=== PATIENT | male | born 1980 | race Two or more races ===

== ENCOUNTER 2017-04-02 17:00 | Emergency (ER) | payer SELFPAY ==
[2017-04-02 17:07] VITALS: BP 129/82
[2017-04-02] MEDS ORDERED: LIDOCAINE 1% INJ-PF (10 MG/ML) 30 ML SDV INJ ONE (17:45)
--- NOTE | 2017-04-02 17:50 | ER Document Report ---
HPI - HPI Pain Level: 5 Notes: Patient is a 36-year-old male who presents the ED complaining of an abscess to his left posterior leg 5 days. Patient states that it began draining 2 days ago. He has been keeping it covered. The redness and swelling has not been improving. Patient has no history of MRSA. He denies any other significant past medical history. Denies any drug allergies. The pain does not radiate. He is still eating/drinking with no problems. Denies any injury. Denies any headache, fever, URI, sore throat, chest pain, palpitations, syncope, cough, shortness of breath, wheeze, dyspnea, abdominal pain, nausea/vomiting/diarrhea, urinary retention, dysuria, hematuria, numbness/tingling, muscle paralysis/ weakness, or other rash. [employer] Auditing Specialist utilized. - ROS Notes: REVIEW OF SYSTEMS: CONSTITUTIONAL : Denies fever, chills, or sweats. Denies recent illness. EENT: Denies eye, ear, throat, or mouth pain or symptoms. Denies nasal or sinus congestion or discharge. Denies throat, tongue, or mouth swelling or difficulty swallowing. CARDIOVASCULAR: Denies chest pain. Denies palpitations or racing or irregular heart beat. Denies ankle edema. RESPIRATORY: Denies cough, cold, or chest congestion. Denies shortness of breath, difficulty breathing, or wheezing. GASTROINTESTINAL: Denies abdominal pain or distention. Denies nausea, vomiting , or diarrhea. Denies blood in vomitus, stools, or per rectum. Denies black, tarry stools. Denies constipation. GENITOURINARY: Denies difficulty urinating, painful urination, burning, frequency, blood in urine, or discharge. MUSCULOSKELETAL: Denies back or neck pain or stiffness. Denies joint pain or swelling. SKIN: see hpi NEUROLOGICAL: Denies confusion or altered mental status. Denies passing out or loss of consciousness. Denies dizziness or lightheadedness. Denies headache. Denies weakness or paralysis or loss of use of either side. Denies problems with gait or speech. Denies sensory loss, numbness, or tingling. ALL OTHER SYSTEMS REVIEWED AND NEGATIVE. Dictation was performed using [employer] recognition software - DERM Skin Color: Normal Past Medical History - Social History Smoking Status: Never Smoker Family History: Reviewed & Not Pertinent Renal/ Medical History: Denies: Hx Peritoneal Dialysis Vertical Provider Document - CONSTITUTIONAL Agree With Documented VS: Yes Notes: PHYSICAL EXAMINATION: GENERAL: Well-appearing, well-nourished and in no acute distress. LUNGS: Breath sounds clear to auscultation bilaterally and equal. No wheezes rales or rhonchi. HEART: Regular rate and rhythm without murmurs, rubs, gallops. Musculoskeletal: Left Leg: FROM to passive/active. Strength 5+/5. Extremities: No cyanosis, clubbing, or edema b/l. Peripheral pulses 2+. Capillary refill less than 3 seconds. NEUROLOGICAL: Cranial nerves grossly intact. Normal speech, normal gait. Normal sensory, motor exams PSYCH: Normal mood, normal affect. SKIN: 4x4cm erythemic abscess noted with purulent discharge. + induration and tenderness. No streaks, lymphangitis. - INFECTION CONTROL TRAVEL OUTSIDE OF THE [place] IN LAST 30 DAYS: No - RESPIRATORY O2 Sat by Pulse Oximetry: 96 Course - Re-evaluation Re-evalutation: 04/02/17 18:25 Patient is an afebrile, well-hydrated, 36-year-old male who presents the ED with an abscess to his left posterior leg. Vitals are stable. PE otherwise unremarkable. Incision and drainage was performed successfully without any complications. Patient tolerated procedure well. Packing was placed. Wound instructions reviewed via seed laboratory assistant and wound dressing was placed. Wound cultures pending. I will send him home with prescription for Bactrim and Keflex to take as directed. [place] dispense pack also rx'd. Advised patient to have a wound check in 2-3 days with PCM/ED. Conservative measures otherwise for symptoms. Return to the ED with any worsening/concerning symptoms otherwise as reviewed in discharge. Patient is in agreement. Martti used for translation. - Vital Signs Vital signs: Temp Pulse Resp BP Pulse Ox 98.1 F 93 16 129/82 H 96 04/02/17 17:06 04/02/17 17:06 04/02/17 17:06 04/02/17 17:06 04/02/17 17:06 Procedures - Incision and Drainage Left Posterior Leg Time completed: 18:15 Type: Simple Anesthetic type: 1% Lidocaine mL's of anesthetic: 8 Blade size: 11 I&D procedure: Shurclens applied, Iodoform packing placed, Sterile dressing applied Incision Method: Incision made by scalpel Amount/type of drainage: 4cc purulent/bloody Notes: 04/02/17 18:20 Incision and drainage procedure, risks, benefits reviewed with the patient. Verbal and written consent obtained. Sterile technique utilized. The area was extensively cleansed utilizing chlorhexadine and saline. A 21-gauge needle was utilized to anesthetize the area using 8 mL's of 1% lidocaine without epinephrine. Once adequate anesthesia was provided, a #11 scalpel was utilized to make a 2.5 cm elliptical incision at the site of the abscess. Moderate amounts of purulent material was expressed. Wound culture obtained. Hemostats were then utilized to break up any remaining muscular pockets within the abscess. The wound was then lightly packed using 1/4" iodoform. Wound dressing and triple antibiotic placed. Minimal blood loss (approximately 2-3 cc's). Patient tolerated procedure well. No complications. Discharge - Discharge Clinical Impression: Abscess Condition: Stable Disposition: HOME, SELF-CARE Instructions: Abscess ([facility]), Cephalexin ([facility]), Post Incision and Drainage, Trimethoprim-Sulfa ([facility]), Follow-Up Care ([facility]) Additional Instructions: Do not shower or bathe for 24 hours. After 24 hours she may shower but no submersion of the wound under water. Keep the original dressing on the wound for 24 hours unless the drainage stops through. Change the dressing daily thereafter and use a small amount of triple antibiotic ointment over the open wound. You may leave the wound open to the air if no discharge after 2 days. Return to the ED and/or your PCM in 2-3 days for recheck and continue direction for wound packing. Monitor for any signs of worsening pain or redness, streaks , and/or fever. Return to the ED if noticing any of the above symptoms or as needed. Take medications as directed. Prescriptions: Cephalexin Monohydrate [Keflex 500 mg Capsule] 500 mg PO BID #20 capsule Sulfamethoxazole/Trimethoprim [Bactrim Ds Tablet] 1 each PO BID #20 tablet Forms: Elevated Blood Pressure Referrals: [facility] [Provider Group] - Follow up as needed [facility] [Provider Group] - Follow up as needed
[2017-04-02] MEDS ORDERED: HYDROCODONE/ACETAMINOPHEN 5-325 MG 6 TAB/DSPK PO PRN (18:30)
== END 2017-04-02 18:45 | disposition home or self-care (01) ==
LOC: ER 17:00
PROC: 0H9JXZZ Drainage of Left Upper Leg Skin, External Approach (ICD-10-PCS; principal; 2017-04-02)
DX: L02.416 Cutaneous abscess of left lower limb (principal)
CPT/HCPCS: 99283; 87070; 87205; 87075; 87077; 87186; 10060; A6266; J3490

== ENCOUNTER 2017-04-05 09:43 | Emergency (ER) | payer SELFPAY ==
[2017-04-05 10:01] VITALS: BP 132/83
--- NOTE | 2017-04-05 11:06 | ER Document Report ---
ED Suture/Wound Recheck - General Chief Complaint: Wound Recheck Stated Complaint: WOUND RECHECK Time Seen by Provider: 04/05/17 10:42 Mode of Arrival: Ambulatory Information source: Patient Notes: 36-year-old male presents to ED for recheck of an abscess. He needed his packing removed and redressed and the site cleaned. TRAVEL OUTSIDE OF THE [place] IN LAST 30 DAYS: No - HPI Treated in ED (days ago): 3 Previous ED treatment: I&D of abscess Antibiotics given previously: Prescription Quality of pain: Achy Severity: Moderate Pain Level: 3 Symptoms since procedure: Pain Exacerbated by: Denies Relieved by: Denies - Related Data Allergies/Adverse Reactions: No Known Allergies Allergy (Verified 04/05/17 10:01) Past Medical History - General Information source: Patient - Social History Smoking Status: Never Smoker Cigarette use (# per day): No Chew tobacco use (# tins/day): No Smoking Education Provided: No Frequency of alcohol use: None Drug Abuse: None Lives with: Family Family History: Reviewed & Not Pertinent - Past Medical History Cardiac Medical History: Reports: None Pulmonary Medical History: Reports: None EENT Medical History: Reports: None Neurological Medical History: Reports: None Endocrine Medical History: Reports: None Renal/ Medical History: Reports: None Malignancy Medical History: Reports None GI Medical History: Reports: None Musculoskeltal Medical History: Reports None Skin Medical History: Reports None Psychiatric Medical History: Reports: None Traumatic Medical History: Reports: None Infectious Medical History: Reports: None Surgical Hx: Negative - Immunizations Hx Diphtheria, Pertussis, Tetanus Vaccination: Yes Review of Systems - Review of Systems Constitutional: No symptoms reported EENT: No symptoms reported Cardiovascular: No symptoms reported Respiratory: No symptoms reported Gastrointestinal: No symptoms reported Genitourinary: No symptoms reported Male Genitourinary: No symptoms reported Musculoskeletal: No symptoms reported Skin: Other - Open area where the abscess was I&D 3 days ago. Packing removed and repacked. Site healing well Hematologic/Lymphatic: No symptoms reported Neurological/Psychological: No symptoms reported Physical Exam - Vital signs Vitals: Temp Pulse Resp BP Pulse Ox 97.7 F 68 16 132/83 H 97 04/05/17 10:00 04/05/17 10:00 04/05/17 10:00 04/05/17 10:00 04/05/17 10:00 - Skin Location of irregularity: Extremities - Right forearm abscess just dressing and packing removed site irrigated with saline packing replaced dressing reapplied patient instructed to return in 2 days or have remove it irrigated and then wash it with soap and water. Course - Vital Signs Vital signs: Temp Pulse Resp BP Pulse Ox 97.7 F 68 16 132/83 H 97 04/05/17 10:00 04/05/17 10:00 04/05/17 10:00 04/05/17 10:00 04/05/17 10:00 Discharge - Discharge Clinical Impression: Abscess Condition: Stable Disposition: HOME, SELF-CARE Instructions: Family Physicians / Practices Additional Instructions: kunt qad ra'ayt alyawm li'iieadat taqyim alkhiraj alkhasi bika. laqad 'azilat altaebiat watanzif aljurhu. sawf tahtaj 'iilaa 'iizalat altaebiat fi yawmayn watanzif almintaqat jayidaan bialma' walsaabuwn maratayn yawmiaan hataa tltym. aleawdat 'iilaa 'iid khushbu 'ayi makhawif mn tuarim aihmirar 'aw hamaa. muasalat almidadaat alhayawiat hortencia 'umirat. mtabaeat santiago yahaira almahaliyat you were seen today for reassessment of your abscess. I have removed the packing and cleaned out the wound. You will need to remove the packing in two day and the clean the area well with soap and water two times daily until healed. return to ed for any concerns of swelling redness or fever. continue antibiotic as ordered. follow up with a local md. Forms: Elevated Blood Pressure Print Language: Polish
== END 2017-04-05 11:10 | disposition home or self-care (01) ==
LOC: ER 09:43
DX: L02.413 Cutaneous abscess of right upper limb (principal)
CPT/HCPCS: 99282

== ENCOUNTER 2017-10-13 07:32 | Emergency (ER) | payer OTHER ==
[2017-10-13 07:37] VITALS: BP 135/74
--- NOTE | 2017-10-13 07:47 | ER Document Report ---
HPI - HPI Patient complains to provider of: right ear pain, chronic nasal congestion/ snoring Onset: Yesterday Pain Level: 3 Context: 37 yo male cleaned right ear canal out with q tip, got bllod, now hurts. Also has chronic nasal congestion and snoring since moving [place] years ago from [facility]. 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 IN LAST 30 DAYS: No - HEENT HEENT: Normocephalic. negative: Tympanic Membrane Red Notes: moist yellow pus base of right canal, mild tender, no swelling, no nodes. bilateral nares boggy, sinus non tender, - NECK Neck: Supple. negative: Lymphadenopathy-Left, Lymphadenopathy-Right - RESPIRATORY Respiratory: Breath Sounds Normal, No Respiratory Distress - CARDIOVASCULAR Cardiovascular: Regular Rate, Regular Rhythm Course - Vital Signs Vital signs: Temp Pulse Resp BP Pulse Ox 98.1 F 79 14 135/74 H 98 10/13/17 07:36 10/13/17 07:36 10/13/17 07:36 10/13/17 07:36 10/13/17 07:36 Discharge - Discharge Clinical Impression: nasal allergies, Snoring Otitis externa Qualifiers: Otitis externa type: unspecified type Chronicity: acute Laterality: right Qualified Code(s): H60.501 - Unspecified acute noninfective otitis externa, right ear Condition: Good Disposition: HOME, SELF-CARE Instructions: Use of Ear Drops ([facility]), ENT, Nasal Corticosteroid Inhaler ([facility]), Otitis Externa ([facility]) Additional Instructions: see ears nose and throat doctor if symptoms persist ear drops for up to 5 days nasal spray is steroid to help decrease the swelling Prescriptions: RX: Gentamicin Sulfate 5 ml AD QID #5 ml Mometasone Furoate [Nasonex] 2 spray NS DAILY #1 spray.pump
== END 2017-10-13 08:17 | disposition home or self-care (01) ==
LOC: ER 07:32
DX: H60.501 Unspecified acute noninfective otitis externa, right ear (principal); X58.XXXA Exposure to other specified factors, initial encounter; T78.40XA Allergy, unspecified, initial encounter; R09.81 Nasal congestion; R06.83 Snoring
CPT/HCPCS: 99282

== ENCOUNTER 2018-03-11 10:09 | Emergency (ER) | payer OTHER ==
[2018-03-11] MEDS ORDERED: PREDNISONE 20 MG TABLET PO ONE (10:46)
[2018-03-11] MEDS ORDERED: IPRATROPIUM/ALBUTEROL 0.5-2.5 MG/3 ML AMPUL NEB ONE (10:46)
[2018-03-11] MEDS ORDERED: BENZONATATE 100 MG CAPSULE PO ONE (10:46)
--- NOTE | 2018-03-11 11:15 | RADIOLOGY REPORT (SQ) ---
EXAM DESCRIPTION: CHEST 2 VIEWS COMPLETED DATE/TIME: 03/11/2018 10:54 am REASON FOR STUDY: prod cough x8 days COMPARISON: None. EXAM PARAMETERS: NUMBER OF VIEWS: two views TECHNIQUE: Digital Frontal and Lateral radiographic views of the chest acquired. RADIATION DOSE: NA LIMITATIONS: none FINDINGS: LUNGS AND PLEURA: No opacities, masses or pneumothorax. No pleural effusion. MEDIASTINUM AND HILAR STRUCTURES: No masses or contour abnormalities. HEART AND VASCULAR STRUCTURES: Heart normal size. No evidence for failure. BONES: No acute findings. HARDWARE: None in the chest. OTHER: No other significant finding. IMPRESSION: NO ACUTE RADIOGRAPHIC FINDING IN THE CHEST. TECHNICAL DOCUMENTATION: JOB ID: [id number] [employer]- All Rights Reserved Reading location - IP/workstation name: [email or web address]
[2018-03-11] MEDS ORDERED: ALBUTEROL SULFATE HFA (90 MCG/PUFF) 8 GM MDI (1 MDI/ER DISP) IH ONE (11:41)
--- NOTE | 2018-03-11 11:42 | ER Document Report ---
HPI - HPI Pain Level: Denies Notes: Patient is an otherwise healthy 37-year-old male who presents with chief complaint of productive cough 7 days. Patient reports he has been trying over- the-counter guaifenesin with no relief. Patient denies any fever, chills or body aches. Patient denies any medical history. - RESPIRATORY Respiratory: REPORTS: Coughing Past Medical History - General Information source: Patient - Social History Smoking Status: Never Smoker Chew tobacco use (# tins/day): No Frequency of alcohol use: None Drug Abuse: None Family History: Reviewed & Not Pertinent Patient has suicidal ideation: No Patient has homicidal ideation: No - Medical History Medical History: Negative Renal/ Medical History: Denies: Hx Peritoneal Dialysis Surgical Hx: Negative - Immunizations Hx Diphtheria, Pertussis, Tetanus Vaccination: Yes Vertical Provider Document - CONSTITUTIONAL Notes: PHYSICAL EXAMINATION: GENERAL: Well-appearing, well-nourished and in no acute distress. HEAD: Atraumatic, normocephalic. EYES: Pupils equal round extraocular movements intact, conjunctiva are normal. ENT: Nares patent NECK: Normal range of motion LUNGS: No respiratory distress, expiratory wheezing noted bilaterally more so to the right side. Musculoskeletal: Normal range of motion NEUROLOGICAL: Normal speech, normal gait. PSYCH: Normal mood, normal affect. SKIN: Warm, Dry, normal turgor, no rashes or lesions noted. - INFECTION CONTROL TRAVEL OUTSIDE OF THE [place] IN LAST 30 DAYS: No Course - Re-evaluation Re-evalutation: Chest x-ray is negative for any acute findings. No pneumonia. Patient's lungs are significantly improved after administration of DuoNeb and prednisone. Patient will be discharged home with bronchitis. Patient given ED return precautions. Discharge - Discharge Clinical Impression: Bronchitis, Wheezing Condition: Stable Disposition: HOME, SELF-CARE Additional Instructions: Bronchitis with Bronchospasm (Wheezing) You have bronchitis with bronchospasm (wheezing). Sometimes people develop wheezing with a chest cold. This occurs either because of an underlying tendency toward asthma or because the virus itself irritates the bronchial tubes. This irritation causes cough, shortness of breath, and wheezing. Emergency treatment of bronchospasm may include adrenaline shots or bronchodilator aerosol. You may feel lightheaded and have a rapid pulse for an hour or two. Rest and get plenty of fluids. At home, we'll treat you with a bronchodilator inhaler. Corticosteroids may be required for some patients. Until you recover, avoid chemical fumes, dusts, pollens, and exercising in very cold or dry air. If you smoke, stop now! Most cases of bronchitis get better without antibiotics. We prescribe antibiotics when we believe bacteria are damaging your airways, or if there's high risk the bronchitis will worsen into pneumonia. Increase your fluid intake. A cool mist humidifier may make your lungs more comfortable. An expectorant (cough medicine that loosens phlegm) can help. Repeated episodes of bronchitis and bronchospasm may result in lung damage -- for example, chronic bronchitis, recurrent pneumonias, or emphysema. If you develop a fever, increased wheezing, chest pain, or severe shortness of breath, you should contact the doctor immediately. Your chest x-ray today was normal and shows no evidence of pneumonia. Please follow-up with your primary care doctor in the next 3-5 days for a checkup. Please take medications as prescribed. If you smoke please stop smoking. Take ibuprofen or acetaminophen if you develop a fever. Prescriptions: Guaifenesin/Hydrocodone Bit [Hydrocodone-Guaifenesin Syrup] 10 ml PO QHS PRN # 118 ml PRN Reason: Cough Benzonatate [Tessalon Perle 100 mg Capsule] 100 mg PO Q8HP PRN #40 cap PRN Reason: Prednisone [Deltasone 20 mg Tablet] 3 tab PO DAILY 5 Days #15 tablet
[2018-03-11 12:01] VITALS: BP 121/69
== END 2018-03-11 12:01 | disposition home or self-care (01) ==
LOC: ER 10:09
DX: J40 Bronchitis, not specified as acute or chronic (principal)
CPT/HCPCS: 94640; 99283; 71046; J7512; J3490; J7620